=== PATIENT | male | born 1960 ===

== ENCOUNTER 2017-06-01 16:15 | Emergency (ER) | payer OTHER ==
[2017-06-01 16:29] VITALS: BMI 20.9
[2017-06-01 16:32] VITALS: RESP 18
--- NOTE | 2017-06-01 17:50 | C.PDOC ---
History Of Present Illness 56 year old male presents to the ED for evaluation of sore throat which began 3 days ago. Patient denies fever, chills, cough, and has no other complaints at this time. Time Seen by Provider: 06/01/17 17:38 Chief Complaint (Nursing): ENT Problem History Per: Patient History/Exam Limitations: None Onset/Duration Of Symptoms: Days (3) Current Symptoms Are (Timing): Still Present Past Medical History Reviewed: Historical Data, Nursing Documentation, Vital Signs Vital Signs: Last Vital Signs Temp 98.4 F 06/01/17 18:45 Pulse 84 06/01/17 18:45 Resp 18 06/01/17 18:45 BP 168/88 H 06/01/17 18:45 Pulse Ox 99 06/01/17 18:45 - Medical History PMH: No Chronic Diseases Surgical History: No Surg Hx Family History: States: Unknown Family Hx - Social History Hx Alcohol Use: Yes Hx Substance Use: No - Immunization History Hx Tetanus Toxoid Vaccination: No Hx Influenza Vaccination: No Hx Pneumococcal Vaccination: No Review Of Systems Constitutional: Negative for: Fever, Chills ENT: Positive for: Throat Pain Respiratory: Negative for: Cough Physical Exam - Physical Exam Appears: Non-toxic, No Acute Distress Skin: Normal Color, Warm, Dry Head: Atraumatic, Normacephalic Eye(s): bilateral: Normal Inspection Ear(s): Bilateral: Normal Nose: Normal, No Discharge Oral Mucosa: Moist Throat: Erythema, No Exudate Neck: Supple Chest: Symmetrical, No Deformity, No Tenderness Cardiovascular: Rhythm Regular, No Murmur Respiratory: Normal Breath Sounds, No Rales, No Rhonchi, No Wheezing Neurological/Psych: Oriented x3, Normal Speech, Normal Cognition ED Course And Treatment O2 Sat by Pulse Oximetry: 98 (on RA ) Pulse Ox Interpretation: Normal Medical Decision Making Medical Decision Making: Progress: Influenza A/B and Rapid Strep swabs ordered. Decadron PO and Tylenol PO administered. pt reassesed: pt now sstates diffuculty swallowing solids. poor historain. additioanl labs ct offered but pt refuses. states will return with worsneing. Disposition - Disposition Referrals: Chago Carvalho MD [Staff Provider] - Disposition: HOME/ ROUTINE Disposition Time: 18:25 Condition: STABLE Additional Instructions: please follow up with your doctor. return to er with worsening symptoms or concenrs. you are declining additioanl workup, imaging, blood test in the er, return to er with worsening symptoms or concerns Prescriptions: Ibuprofen [Motrin Tab] 400 mg PO Q6 PRN #20 tab PRN Reason: Pain, Mild (1-3) Instructions: Strep Throat (DC) Forms: [employer] (Indonesian) Print Language: HAITIAN - Clinical Impression Clinical Impression: Pharyngitis - Scribe Statement The provider has reviewed the documentation as recorded by the Scribe (Susy Aparicio) Provider Attestation: All medical record entries made by the Scribe were at my direction and personally dictated by me. I have reviewed the chart and agree that the record accurately reflects my personal performance of the history, physical exam, medical decision making, and the department course for this patient. I have also personally directed, reviewed, and agree with the discharge instructions and disposition.
[2017-06-01 18:08] LABS: INFLUENZA A B NEGATIVE FOR FLU A/B (NEGATIVE)
[2017-06-01 18:46] VITALS: BP 168/88; PULSE 84; TEMP 98.4
[2017-06-05 11:36] VITALS: O2SAT 98
== END 2017-06-01 18:45 | disposition home or self-care (01) ==
LOC: C.ER 16:15
DX: J02.9 Acute pharyngitis, unspecified (principal)
CPT/HCPCS: 87070; 87430; 87804; 99283; J8540